=== PATIENT | female | born 1995 | race Two or more races ===

== ENCOUNTER 2022-06-05 09:30 | Emergency (ER) | payer OTHER ==
[~2022-06-05] VITALS: Ht 165.1 cm; Wt 58.1 kg
--- NOTE | 2022-06-05 09:43 | NUR ---
BIBS W/ C/O EPIGASTRIC PAIN AND NAUSEA/VOMITING X1 WEEK. TO ER BED 3.
--- NOTE | 2022-06-05 09:45 | NUR ---
URINE COLLECTED AND SENT
--- NOTE | 2022-06-05 09:50 | NUR ---
DR HANSON AT BEDSIDE FOR EVAL
[2022-06-05] MEDS ORDERED: MAG HYDROX/AL HYDROX/SIMETH 30 ML UDC ONE (09:59)
[2022-06-05] MEDS ORDERED: FAMOTIDINE/PF INJ 20 MG/2 ML VIAL IV ONE ×2 (09:59→10:00)
[2022-06-05] MEDS ORDERED: ONDANSETRON HCL/PF 4 MG/2 ML VIAL ONE (09:59)
[2022-06-05] MEDS ORDERED: ONDANSETRON HCL/PF 4 MG/2 ML VIAL IVP ONE (10:00)
[2022-06-05] MEDS ORDERED: IV NS 0.9% 1,000 ML BAG IV ONE (10:00)
[2022-06-05] MEDS ORDERED: MAG HYDROX/AL HYDROX/SIMETH 30 ML UDC PO ONE (10:00)
--- NOTE | 2022-06-05 10:10 | NUR ---
IV LINE ESTABLISHED ON LAC #20, BLOOD DRAWN AND SENT TO LAB
[2022-06-05 10:17] LABS: BASOPHILS % (AUTO) 0.9 % (0.0-2.0); EOSINOPHILS % (AUTO) 2.2 % (0.0-6.0); HEMATOCRIT 37 % (33-45); LYMPHOCYTES # (AUTO) 1.8 K/uL (0.8-4.8); LYMPHOCYTES % (AUTO) 37.6 % (20.0-44.0); MEAN CORPUSCULAR HGB CONC 33 g/dl (31.0-36.0); MEAN CORPUSCULAR VOLUME 86 fL (82-100); MONOCYTES # (AUTO) 0.5 K/uL (0.1-1.30); MONOCYTES % (AUTO) 9.9 % (2.0-12.0); NEUTROPHILS # (AUTO) 2.3 K/uL (1.8-8.9); NEUTROPHILS % (AUTO) 49.4 % (43.0-81.0); PLATELET COUNT (AUTO) 222 K/uL (150-450); RED BLOOD CELL COUNT(AUTO) 4.27 MIL/uL (4.0-5.2); WHITE BLOOD COUNT (AUTO) 4.7 K/uL (4.3-11.0)
[2022-06-05 10:20] LABS: BILIRUBIN,URINE NEGATIVE (NEGATIVE); COLOR,URINE YELLOW (YELLOW); LEUKOCYTE ESTERASE ,URINE NEGATIVE (NEGATIVE); NITRITE, URINE NEGATIVE (NEGATIVE); PROTEIN,URINE NEGATIVE (NEGATIVE); UGLUCOSE NEGATIVE (NEGATIVE); UROBILINOGEN,URINE 0.2 EU/dL (0.2)
[2022-06-05 10:24] LABS: CALCIUM, SERUM 9.1 mg/dL (8.5-10.1); CREATININE 0.9 mg/dL (0.6-1.3); POTASSIUM 3.9 mmol/L (3.5-5.1)
[2022-06-05 10:30] LABS: ALBUMIN 3.7 g/dL (3.4-5.0); BILIRUBIN,DIRECT 0.1 mg/dL (0.0-0.2); BILIRUBIN,TOTAL 0.4 mg/dL (0.2-1.0); TOTAL PROTEIN, SERUM 7.2 g/dL (6.4-8.2)
--- NOTE | 2022-06-05 10:41 | NUR ---
PT UNABLE TO PASS STOOL AT THIS TIME; DOES NOT HAVE URGE YET.
--- NOTE | 2022-06-05 10:47 | NUR ---
WAIVER SIGNED BY PATIENT; FORM PLACED IN THE CHART.
--- NOTE | 2022-06-05 11:05 | NUR ---
PT TAKEN TO RADIOLOGY FOR CT
[2022-06-05] MEDS ORDERED: CIPR-262 PO (11:36)
[2022-06-05] MEDS ORDERED: LOPE2TAB25 PO (11:36)
--- NOTE | 2022-06-05 11:48 | NUR ---
IV removed. Catheter intact and site benign. Pressure and 4x4 applied to site. No bleeding noted.
--- NOTE | 2022-06-05 11:48 | NUR ---
Patient discharged to home in stable condition. Written and verbal after care instructions given. Patient verbalizes understanding of instruction. Prescription provided electronically.
[2022-06-05 11:49] VITALS: BP 108/63
== END 2022-06-05 11:49 | disposition home or self-care (01) ==
LOC: ER 09:35
DX: R10.84 Generalized abdominal pain (principal); A09 Infectious gastroenteritis and colitis, unspecified
CPT/HCPCS: 99284; 74176; 96374; 96361; 96375; 85025; 80048; 83690; 80076; 84703; 81003; 36415; J3490; J2405; J7030